=== PATIENT | female | born 1980 | race Caucasian/White ===

== ENCOUNTER 2023-10-04 10:08 | Emergency (ER) | payer OTHER, SELFPAY ==
--- NOTE | ~2023-10-04 | CT_ITS ---
EXAMINATION: CT ABDOMEN AND PELVIS WITH CONTRAST CLINICAL INFORMATION: Left-sided flank pain. COMPARISON: None available. TECHNIQUE: Multidetector volumetric images were obtained from the superior aspect of the liver through the pubic symphysis following administration 85 mL of Omnipaque 350 intravenous contrast. Sagittal and coronal reformatted images were obtained on the technologist's workstation. Oral contrast: No This CT examination was performed using dose optimization techniques as appropriate, variously including the following: *Automated exposure control *Adjustment of mA and/or kV according to patient size (this includes techniques or standardized protocols for targeted exams where dose is matched to indication/reason for exam; i.e. extremities or head) *Use of iterative reconstruction technique DLP: 551 mGy-cm FINDINGS: LUNG BASES: The visualized lung bases are unremarkable. Basilar atelectasis is present. LIVER, GALLBLADDER, AND BILIARY TREE: The liver is normal in size, shape, and attenuation. There is a 5 mm hypoechoic lesion in the right lobe of the liver along with some other even smaller lesions. These are all likely benign cysts but are indeterminate because of their small size. No biliary ductal dilatation is present. The gallbladder is unremarkable with no evidence of radiopaque gallstones, gallbladder wall thickening, or obvious pericholecystic inflammatory changes. PANCREAS: Unremarkable. SPLEEN: Unremarkable. ADRENAL GLANDS: Unremarkable. KIDNEYS AND URETERS: The kidneys are normal in size, shape, and attenuation. Multiple benign bilateral, predominately parapelvic, Bosniak class I renal cysts are noted which require no additional imaging or follow-up. No solid renal masses are seen. No hydronephrosis, hydroureter, or calculi seen. No perinephric stranding. BLADDER: Unremarkable. GASTROINTESTINAL TRACT: The small and large bowel are unremarkable. The appendix is unremarkable. ABDOMINAL WALL: No significant hernia is appreciated. LYMPH NODES: Normal. VASCULAR: Unremarkable. PELVIC VISCERA: An anteverted uterus is present containing an IUD in good position. There is an enhancing 2.5 cm fibroid at the fundus on the right. OSSEOUS STRUCTURES: Unremarkable. CT/CT abdomen pelvis w IV con IMPRESSION: 1. A cause for the patient's left-sided flank pain has not been found. 2. Incidental note made of benign hepatic and renal cysts which need no further imaging or follow-up, uterine fibroid and IUD in good position. Fleischner guidelines were followed.
[2023-10-04 10:42] VITALS: BP 144/89; PULSE 86; RESP 16; TEMP 37; O2SAT 100; BMI 27.3
[2023-10-04 11:19] LABS: MANUAL DIFF FLAG NO
[2023-10-04 11:25] LABS: Basophils Absolute Auto 0.1 X10*3/uL (0.0-0.2); Basophils Percent Auto 0.9 % (0-2); Eosinophils Absolute Auto 0.3 X10*3/uL (0.0-0.4); Eosinophils Percent Auto 3.2 % (0-4); Hematocrit 44.5 % (37.0-47.0); Hemoglobin 14.6 g/dl (12.0-16.0); Imm Gran Abs Auto 0.03 X10*3/uL (0.00-0.03); Imm Gran Pct Auto 0.4 % (0.0-0.4); Lymphocytes Absolute Auto 1.8 X10*3/uL (1.2-4.9); Lymphocytes Percent Auto 22.3 % (20-40); Mean Corpuscular HGB Conc 32.8 g/dl (31.0-35.0); Mean Corpuscular Hemoglobin 28.6 pg (27.0-33.0); Mean Corpuscular Volume 87.3 fL (80.0-98.0); Mean Platelet Volume 10.2 fL (9.4-12.3); Monocytes Absolute Auto 0.4 X10*3/uL (0.1-1.2); Neutrophils Absolute Auto 5.4 x10*3/uL (2.0-8.3); Neutrophils Percent Auto 68.2 % (45-73); Platelet Count 212 X10*3/uL (160-400); Red Cell Distribution Width 12.9 % (11.0-16.0); White Blood Count 7.9 X10*3/uL (4.8-10.8)
[2023-10-04 11:26] LABS: Appearance Urine Clear; Color Urine Yellow; Glucose Urine UA Negative (Negative); Leukocyte Esterase Urine Negative (Negative); Nitrite Urine Negative (Negative); Urine Blood Negative (Negative); Urine Ketones Negative (Negative); Urine Protein Negative (Neg-Trace)
[2023-10-04 11:27] LABS: UPreg QC Valid YES; Urine Pregnancy NEGATIVE (NEGATIVE)
[2023-10-04 11:40] LABS: Anion Gap 8 (12-20); Blood Urea Nitrogen 14 mg/dL (9-16); Calcium 9.2 mg/dL (8.4-10.2); Carbon Dioxide 27 mmol/L (22-29); Chloride 107 mmol/L (96-108); Creatinine Clr Calc Pharmacy 87.4; Estimated Glomerular Filt Rate > 60; Glucose Random 98 mg/dL (60-115); Sodium 138 mmol/L (135-145)
[2023-10-04 12:00] VITALS: BP 145/85; PULSE 103; RESP 17; TEMP 36.8; O2SAT 100
--- NOTE | 2023-10-04 12:30 | MHC.EDTECH ---
This tech checked pt vital signs, report given to MILENA Luevano, call lopes within reach.
--- NOTE | 2023-10-04 12:38 | ED.GENADULT ---
HPI - General Adult General Chief complaint: Back Pain/Injury Stated complaint: Back pain L side Time Seen by Provider: 10/04/23 12:15 Source: patient Mode of arrival: ambulatory Limitations: no limitations History of Present Illness HPI narrative: This is a 43-year-old with no reported past medical history who presents for evaluation of left flank pain. Patient reports she has had flank pain for the last 1 week. He states trying [id number] medications with no relief. She states that she does find some with heating pad. She reports no history of back surgery or back injury. She states no dysuria or urinary frequency/urgency. She states developing nausea without emesis. She states that the nausea made her concerned and she thought she should be evaluated. She states no fevers or chills. She states pain is not worse at night. She states no unintentional weight loss. She states no history of bleeding diathesis. She states no fall or trauma. She states no paresthesias. She states no incontinence of urine or stool. She states no urinary retention. She states having bowel movements. She states no melena or hematochezia. She states no abdominal pain. She states no chest pain or difficulty breathing. She states no lightheadedness or syncope. Related Data Allergies Allergy/AdvReac Type Severity Reaction Status Date / Time No Known Allergies Allergy Verified 10/04/23 10:43 [No Known Allergies*] Review of Systems Review of Systems: ROS as per [facility] Social History Social History Smoked in Last 30 Days: Yes Use of substances other than those prescribed or required for medical reasons: Yes Substance Use Type: Marijuana Substance Use Frequency: Daily Advance Directives: No Physical Exam ED Vital Signs: Vital Signs - 24 hr 10/04/23 10:42 10/04/23 12:00 10/04/23 14:00 Temperature 98.6 F 98.2 F 98.2 F Pulse Rate 86 103 H 72 Respiratory Rate 16 17 16 Blood Pressure 144/89 H 145/85 H 131/86 Pulse Oximetry 100 100 100 Oxygen Delivery Method Room Air Room Air Room Air BMI result Body Mass Index 27.3 Gen: NAD, AOx3 HEENT: NCAT, EOMI, normal conjunctiva CV: RRR Pulm: CTAB, no increased work of breathing GI: Soft, NTND, no rebound, guarding or rigidity MSK: No midline vertebral tenderness to palpation or overlying skin changes, mild left mid back tenderness to palpation Neuro: Grossly non focal Medications Administered Discontinued Medications Generic Name Dose Route Start Last Admin Trade Name Tonia PRN Reason Stop Dose Admin Lactated Ringer's 1,000 mls @ 999 mls/hr 10/04/23 12:33 10/04/23 14:38 Lr IV 10/04/23 13:33 Infused .Q1H1M ONE Infusion Iohexol 100 ml 10/04/23 13:21 10/04/23 13:22 Iohexol 350 Mg/Ml 100 Ml Infus..Btl IV 10/04/23 13:22 85 ml ONCE ONE Administration Ketorolac Tromethamine 15 mg 10/04/23 12:33 10/04/23 12:42 Ketorolac Tromethamine 15 Mg/Ml Vial IVPUSH 10/04/23 12:34 15 mg ONCE ONE Administration Ondansetron HCl 4 mg 10/04/23 12:33 10/04/23 12:42 Ondansetron Hcl 4 Mg/2 Ml Vial IVPUSH 10/04/23 12:34 4 mg ONCE ONE Administration Medical Decision Making Medical Decision Making [facility] Narrative: Differential diagnosis includes, but is not limited to strain, nephrolithiasis, pyelonephritis. Patient is provided supportive care here in the emergency room with IV fluids, Toradol and Zofran. Patient is afebrile and hemodynamically stable on room air. Exam is benign and reassuring. I reviewed and interpreted labs as below. I reviewed radiology impression of CT imaging as below. There is no identifiable cause for patient's left-sided flank pain. There is incidentally noted benign hepatic and renal cysts which need no further imaging or follow up, uterine fibroid in IUD in good position. Patient is made aware of these findings. On re-examination, patient is well-appearing and in no acute distress. ?Patient states symptoms have improved. ?There is no indication for further emergent evaluation in this otherwise well-appearing patient as above. ?Patient is provided written and verbal instructions, educational materials, recommendations for outpatient follow-up, strict return precautions and teach back is performed. ?Patient states understanding and agreement with plan of care. ?Patient is discharged home in stable and improved condition. Admission/Observation Consideration of admission/observation: Escalation of care including admission/observation considered Lab Data [facility] Lab Attestation statement: I reviewed the patient's lab results. I reviewed interpreted the patient's labs independently including CBC, BMP and urinalysis, which are unremarkable. Urinalysis is not consistent with urinary tract infection. bHCG is negative. 10/04/23 11:12 10/04/23 11:12 Labs: Lab Results 10/04/23 10/04/23 10/04/23 Range/Units 11:08 11:09 11:12 WBC 7.9 (4.8-10.8) X10*3/uL RBC 5.10 (4.20-5.50) X10*6/uL Hgb 14.6 (12.0-16.0) g/dl Hct 44.5 (37.0-47.0) % MCV 87.3 (80.0-98.0) fL MCH 28.6 (27.0-33.0) pg MCHC 32.8 (31.0-35.0) g/dl RDW 12.9 (11.0-16.0) % Plt Count 212 (160-400) X10*3/uL MPV 10.2 (9.4-12.3) fL Immature Gran % (Auto) 0.4 (0.0-0.4) % Neut % (Auto) 68.2 (45-73) % Lymph % (Auto) 22.3 (20-40) % [place] % (Auto) 5.0 (2-11) % Eos % (Auto) 3.2 (0-4) % Baso % (Auto) 0.9 (0-2) % Lymph # (Auto) 1.8 (1.2-4.9) X10*3/uL [place] # (Auto) 0.4 (0.1-1.2) X10*3/uL Eos # (Auto) 0.3 (0.0-0.4) X10*3/uL Baso # (Auto) 0.1 (0.0-0.2) X10*3/uL Abs Immat Gran (auto) 0.03 (0.00-0.03) X10*3/uL Absolute Neuts (auto) 5.4 (2.0-8.3) x10*3/uL Absolute Nucleated RBC 0.000 (0.0-0.012) X10*3/uL Nucleated RBC % (auto) 0.0 (0.0-0.2) /100WBC Sodium 138 (135-145) mmol/L Potassium 4.0 (3.3-5.1) mmol/L Chloride 107 (96-108) mmol/L Carbon Dioxide 27 (22-29) mmol/L Anion Gap 8 L (12-20) BUN 14 (9-16) mg/dL Creatinine 0.89 (0.5-1.4) mg/dL Estim Creat Clear Calc 87.4 Estimated GFR > 60 Random Glucose 98 (60-115) mg/dL Calcium 9.2 (8.4-10.2) mg/dL Urine Color Yellow Urine Appearance Clear Urine pH 6.0 (5.0-9.0) Ur Specific [place] 1.010 (1.005-1.025) Urine Protein Negative (Neg-Trace) mg/dL Urine Glucose (UA) Negative (Negative) mg/dL Urine Ketones Negative (Negative) mg/dL Urine Blood Negative (Negative) Urine Nitrite Negative (Negative) Ur Leukocyte Esterase Negative (Negative) Urine Test NEGATIVE (NEGATIVE) Radiology Impression Discussion of test interpretation with radiology: I have reviewed the radiologist's reading. Radiologist Impression: CT/CT abdomen pelvis w IV con IMPRESSION: 1. A cause for the patient's left-sided flank pain has not been found. 2. Incidental note made of benign hepatic and renal cysts which need no further imaging or follow-up, uterine fibroid and IUD in good position. Fleischner guidelines were followed. Dictated By: Lan Dowd MD Signed By: <Electronically signed by Lan Dowd MD in [place]> 10/04/23 1442 Discharge Plan Discharge Clinical Impression: Flank pain Patient Disposition: Home, Self-Care Instructions: Flank Pain (ED) Additional Instructions: You were seen and evaluated in the emergency room. Your vital signs were normal and he did not have fever. ? Your blood work was normal. Your CT scan did not identify any emergent processes. We did incidentally note benign cysts in your liver and kidneys. You were noted to have uterine fibroids and your IUD was well-positioned. You may consider taking 600 mg ibuprofen every 6 hours as needed for pain. Please always take this with food and water. Please do not take any other nonsteroidal anti-inflammatory drugs while taking ibuprofen (such as naproxen, celecoxib, meloxicam, diclofenac). You may also consider taking a 1000 mg Tylenol every 8 hours as needed for additional pain relief. Please follow-up with your primary care doctor in the next 5-7 days. ? Please return to the emergency room if you develop any worsening symptoms including, but not limited to fever, new or worsening abdominal pain or back pain. chest pain or difficulty breathing. Print Language: Mos[place]o
[2023-10-04] MEDS: Lactated Ringers 1,000 ML 999 ML IV (12:42)
[2023-10-04] MEDS: ondansetron HCL 4 MG/2 ML VIAL IVPUSH (12:42)
[2023-10-04] MEDS: Ketorolac Tromethamine 15 MG/ML VIAL IVPUSH (12:42)
[2023-10-04] MEDS: iohexoL 350 MG/ML 100 ML INFUS..BTL IV (13:22)
[2023-10-04 14:00] VITALS: BP 131/86; PULSE 72; RESP 16; TEMP 36.8; O2SAT 100
--- NOTE | 2023-10-04 14:36 | MHC.EDTECH ---
This tech helped pt go to the bathroom, call lopes within reach.
[2023-10-04 15:25] VITALS: BP 131/86; PULSE 72; RESP 16; TEMP 36.8; O2SAT 100
== END 2023-10-04 15:26 | disposition home or self-care (01) ==
PROVIDERS: Emergency Provider Emergency Medicine; PCP Internal Medicine
DX: R10.9 Unspecified abdominal pain (principal); R11.0 Nausea; Z98.890 Other specified postprocedural states
CPT/HCPCS: 36415; 74177; 80048; 81003; 81025; 85025; 96361; 96374; 96375; 99284; 99285; J1885; J2405; J7120; Q9967